=== PATIENT | male | born 1965 | race Caucasian/White ===

== ENCOUNTER 2018-10-28 08:13 | Emergency (ER) | payer BC ==
[~2018-10-28] VITALS: Ht 175.3 cm; Wt 107.5 kg
[2018-10-28] MEDS ORDERED: FISH OIL 1,001000 M2 PO (11:03)
[2018-10-28] MEDS ORDERED: VITAMIN D1000 UNI1 PO (11:03)
[2018-10-28] MEDS ORDERED: CRESTOR10 MG (11:04)
[2018-10-28] MEDS ORDERED: PERCOCET 5-3251 EACH PO (11:28)
[2018-10-28] MEDS ORDERED: SENNA-DOCUSATE1 EAC1 PO (11:28)
[2018-10-28 12:20] VITALS: BP 147/121
== END 2018-10-28 12:27 | disposition home or self-care (01) ==
LOC: ER 08:13
DX: M79.651 Pain in right thigh (principal); E78.00 Pure hypercholesterolemia, unspecified